=== PATIENT | male | born 1990 | race Caucasian/White ===

== ENCOUNTER → 2019-07-31 08:10 | Outpatient (CLI) | payer OTHER, SELFPAY ==
[2019-07-31 08:06] VITALS: BMI 29.2
--- NOTE | 2019-07-31 08:11 | RAD_ITS ---
STUDY: X-RAY - LEFT HAND, ATTENTION THIRD FINGER REASON FOR EXAM: Male, 29 years old. Crushing injury left middle finger, laceration mid finger TECHNIQUE: 3 view(s) of the finger were obtained. COMPARISON: None. FINDINGS: Normal metacarpal head. Normal metacarpophalangeal joint. Normal proximal phalanx. Normal middle phalanx. Normal distal phalanx. Normal proximal interphalangeal joint. Normal distal interphalangeal joint. RAD/Finger(s) Min 2 Views IMPRESSION: Normal x-ray examination of the finger. Electronically Signed: Eulalio Durán, at 8:40 EST , Service support ,
== END ==
PROVIDERS: Referring Provider Physician Assistant Surgical; Visit Provider Physician Assistant Surgical
DX: S67.193A Crushing injury of left middle finger, initial encounter (principal); S61.213A Laceration without foreign body of left middle finger without damage to nail, initial encounter
CPT/HCPCS: 73140